=== PATIENT | female | born 1985 | race Caucasian/White ===

== ENCOUNTER 2017-10-27 11:11 | Emergency (ER) | payer MEDICARE, OTHER ==
[2017-10-27 11:23] VITALS: BP 113/78; PULSE 102; RESP 18; TEMP 97; O2SAT 100
--- NOTE | 2017-10-27 11:30 | PD ---
HPI Chief Complaint: Suicide Ideation/Attempt Time Seen by Provider: 11:28 Travel History International Travel<30 days: No Contact w/Intl Traveler<30days: No Traveled to known affect area: No History of Present Illness HPI 31-year-old female with PMH of bipolar, schizophrenia presents to the ED under Rangel act for psychiatric evaluation. According to the Rangel act the patient flagged down a passerby and asked to use the phone. She used the phone to call EMS report that she is suicidal. On presentation she confirms that she is indeed suicidal. She has no specific plan. She states that she receives some sort of shot for her psychiatric illnesses but is unsure of the name of the medication, last dose a few weeks ago. She denies any somatic complaints. She is unsure the date of her last period. She endorses unprotected sex with male partner since then. She states that she lives in [place], but has [place]." She endorses using ice and heroin this week. She endorses smoking cigarettes, denies alcohol use. She states her tetanus immunization is up-to- date. PFSH Past Medical History ?: Unknown Social History Tobacco Use: Yes Allergies-Medications (Allergen,Severity, Reaction): Coded Allergies: No Known Allergies (Unverified , 10/27/17) Reported Meds & Prescriptions Reported Meds & Active Scripts Active Bactrim DS (Sulfamethoxazole-Trimethoprim) 800-160 Mg Tab 1 Tab PO BID Review of Systems Except as stated in HPI: all other systems reviewed are Neg Physical Exam Narrative GENERAL: Well-nourished, well-developed white female no acute distress. PSYCH: Calm, cooperative. Does not seem to be responding to internal stimuli. SKIN: Focused skin assessment warm/dry. Multiple superficial scratches and lacerations of the upper and lower extremities bilaterally. No signs of infection. HEAD: Normocephalic. EYES: No scleral icterus. No injection or drainage. NECK: Supple, trachea midline. No JVD or lymphadenopathy. CARDIOVASCULAR: Regular rate and rhythm without murmurs, gallops, or rubs. RESPIRATORY: Breath sounds equal bilaterally. No accessory muscle use. GASTROINTESTINAL: Abdomen soft, non-tender, nondistended. MUSCULOSKELETAL: No cyanosis, or edema. Walks with a normal gait. BACK: Nontender without obvious deformity. No CVA tenderness. Data Data Last Documented VS Vital Signs Date Time Temp Pulse Resp B/P (MAP) Pulse Ox O2 Delivery O2 Flow Rate FiO2 10/27/17 11:23 97.0 102 18 113/78 (90) 100 Orders Orders Complete Blood Count With Diff (10/27/17 11:21) Comprehensive Metabolic Panel (10/27/17 11:21) Thyroid Stimulating Hormone (10/27/17 11:21) Urinalysis - C+S If Indicated (10/27/17 11:21) Psych Screen (10/27/17 11:21) Drug Screen, Random Urine (10/27/17 11:21) Alcohol (Ethanol) (10/27/17 11:21) Ed Urine Pregnancytest Poc (10/27/17 11:21) Diet Regular Basic (10/27/17 Lunch) Urine Culture (10/27/17 13:58) Sulfamet-Trimeth Ds 800-160 Mg (Bactrim (10/27/17 15:30) Labs Laboratory Tests Test 10/27/17 11:32 10/27/17 13:58 White Blood Count 5.1 TH/MM3 Red Blood Count 4.12 MIL/MM3 Hemoglobin 13.3 GM/DL Hematocrit 38.6 % Mean Corpuscular Volume 93.7 FL Mean Corpuscular Hemoglobin 32.4 PG Mean Corpuscular Hemoglobin Concent 34.5 % Red Cell Distribution Width 13.5 % Platelet Count 157 TH/MM3 Mean Platelet Volume 7.5 FL Neutrophils (%) (Auto) 53.1 % Lymphocytes (%) (Auto) 34.1 % Monocytes (%) (Auto) 11.9 % Eosinophils (%) (Auto) 0.1 % Basophils (%) (Auto) 0.8 % Neutrophils # (Auto) 2.7 TH/MM3 Lymphocytes # (Auto) 1.7 TH/MM3 Monocytes # (Auto) 0.6 TH/MM3 Eosinophils # (Auto) 0.0 TH/MM3 Basophils # (Auto) 0.0 TH/MM3 CBC Comment DIFF FINAL Differential Comment Blood Urea Nitrogen 13 MG/DL Creatinine 0.99 MG/DL Random Glucose 103 MG/DL Total Protein 8.2 GM/DL Albumin 4.1 GM/DL Calcium Level 8.9 MG/DL Alkaline Phosphatase 86 U/L Aspartate Amino Transf (AST/SGOT) 70 U/L Alanine Aminotransferase (ALT/SGPT) 151 U/L Total Bilirubin 0.7 MG/DL Sodium Level 137 MEQ/L Potassium Level 3.8 MEQ/L Chloride Level 104 MEQ/L Carbon Dioxide Level 24.1 MEQ/L Anion Gap 9 MEQ/L Estimat Glomerular Filtration Rate 65 ML/MIN Thyroid Stimulating Hormone 3rd Gen 7.240 uIU/ML Ethyl Alcohol Level LESS THAN 3 MG/DL Urine Color YELLOW Urine Turbidity HAZY Urine pH 6.0 Urine Specific [place] 1.015 Urine Protein TRACE mg/dL Urine Glucose (UA) NEG mg/dL Urine Ketones NEG mg/dL Urine Occult Blood SMALL Urine Nitrite NEG Urine Bilirubin NEG Urine Urobilinogen LESS THAN 2.0 MG/DL Urine Leukocyte Esterase LARGE Urine RBC 17 /hpf Urine WBC 45 /hpf Urine WBC Clumps RARE Urine Squamous Epithelial Cells 8 /hpf Urine Transitional Epithelial Cells <1 /hpf Urine Bacteria OCC /hpf Urine Mucus FEW /lpf Microscopic Urinalysis Comment CULTURE INDICATED Urine Opiates Screen POS Urine Barbiturates Screen NEG Urine Amphetamines Screen POS Urine Benzodiazepines Screen POS Urine Cocaine Screen POS Urine Cannabinoids Screen NEG MDM Medical Decision Making Medical Screen Exam Complete: Yes Emergency Medical Condition: Yes Differential Diagnosis Adjustment disorder versus anxiety versus bipolar versus depression versus dementia versus electrolyte disorder versus malingering versus mood disorder versus ODD versus psychosis versus PTSD versus schizophrenia versus schizoaffective disorder versus substance-induced mood disorder versus other Narrative Course 31-year-old female with PMH of bipolar, schizophrenia presents to the ED under Rangel act for psychiatric evaluation. Patient endorses suicidality without specific plan. She states that she receives some sort of shot for her psychiatric illnesses but is unsure of the name of the medication, last dose a few weeks ago. She denies any somatic complaints. She is unsure the date of her last period. Endorses using ice and heroin this week. Vitals reviewed. On exam the patient is calm and cooperative, does not appear to be responding to internal stimuli. Multiple superficial abrasions noted. States tetanus is up-to-date. Chest CTAB. Abdomen soft and nontender. Patient walks with normal gait. No concerning abnormalities a CBC. Mild elevation 2-1 of the ALT to AST. TSH elevated, likely related to recent heroin and ice use. UA hazy, small occult blood, large leukocyte Estrace, 45 WBCs, rare WBC clumps, occasional bacteria. Culture pending. Tox screen positive for opiates and amphetamines benzodiazepines cocaine. Patient's prescribed Bactrim DS twice daily 3 days. Bactrim is ordered every 12 hours while in the hospital. She is medically cleared for psychiatric evaluation. Diagnosis Primary Impression: Urinary tract infection Qualified Codes: N39.0 - Urinary tract infection, site not specified Additional Impression: Substance abuse Scripts Sulfamethoxazole-Trimethoprim (Bactrim DS) 800-160 Mg Tab 1 TAB PO BID for Infection, #6 TAB 0 Refills Prov: Neri Villalta MD 10/27/17 Kimberley Mon Oct 27, 2017 11:30
[2017-10-27 11:40] LABS: AUTOMATED NEUTROPHIL # 2.7 TH/MM3 (1.8-7.7); BASOPHIL % 0.8 % (0.0-2.0); EOSINOPHIL % 0.1 % (0.0-4.0); HEMATOCRIT 38.6 % (35.0-46.0); HEMOGLOBIN 13.3 GM/DL (11.6-15.3); LYMPH % 34.1 % (9.0-44.0); LYMPHOCYTE # 1.7 TH/MM3 (1.0-4.8); MEAN CELL VOLUME 93.7 FL (80.0-100.0); MEAN CORPUSCULAR HEMOGLOBIN 32.4 PG (27.0-34.0); MEAN CORPUSCULAR HGB CONC 34.5 % (32.0-36.0); MEAN PLATELET VOLUME 7.5 FL (7.0-11.0); MONO % 11.9 % (0.0-8.0); MONOCYTE # 0.6 TH/MM3 (0-0.9); NEUT % 53.1 % (16.0-70.0); PLATELET COUNT 157 TH/MM3 (150-450); RED BLOOD COUNT 4.12 MIL/MM3 (4.00-5.30); RED CELL DISTRIBUTION WIDTH 13.5 % (11.6-17.2); WHITE BLOOD COUNT 5.1 TH/MM3 (4.0-11.0)
[2017-10-27 11:54] LABS: ALBUMIN 4.1 GM/DL (3.4-5.0); AST (GOT) 70 U/L (15-37); BICARBONATE 24.1 MEQ/L (21.0-32.0); BLOOD UREA NITROGEN 13 MG/DL (7-18); CALCIUM 8.9 MG/DL (8.5-10.1); CHLORIDE 104 MEQ/L (98-107); CREATININE 0.99 MG/DL (0.50-1.00); GLOMERULAR FILTRATION RATE 65 ML/MIN (>89); GLUCOSE,RANDOM 103 MG/DL (74-106); SODIUM (NA) 137 MEQ/L (136-145)
[2017-10-27 11:55] LABS: ALT (GPT) 151 U/L (10-53)
[2017-10-27 12:05] LABS: ALKALINE PHOSPHATASE 86 U/L (45-117); TOTAL BILIRUBIN ADULT 0.7 MG/DL (0.2-1.0); TOTAL PROTEIN 8.2 GM/DL (6.4-8.2)
[2017-10-27 14:20] LABS: BACTERIA, URINE OCC /hpf; BILIRUBIN, URINE NEG (NEG); BLOOD, URINE SMALL (NEG); GLUCOSE,URINE NEG (NEG); KETONE, URINE NEG (NEG); MUCUS URINE FEW /lpf (OCC); NITRITE,URINE NEG (NEG); SQUAMOUS EPITHELIAL CELL URINE 8 /hpf (0-5); TRANSITIONAL EPI CELLS, URINE <1 /hpf; URINE COLOR YELLOW (YELLW/STRAW); URINE LEUKOCYTE ESTERASE LARGE (NEG); WHITE BLOOD CELL CLUMPS RARE
--- NOTE | 2017-10-27 14:55 | PD.PSY.CON ---
Provisional Diagnosis Admission Date [facility] I. Polysubstance dependence including cocaine, cannabis, amphetamines, benzodiazepine, opiates History of Present Illness Service Psychiatry Consult Requested By ER Reason for Consult SI Primary Care Physician No Primary Care Physician HPI The patient is 31-year-old female with PMH of bipolar, schizophrenia, polysubstance dependence including cocaine, cannabis, benzodiazepines, opiates, who presents to the ED under Rangel act for psychiatric evaluation. According to the Rangel act the patient flagged down a passerby and asked to use the phone. She used the phone to call EMS report that she is suicidal. On presentation she confirms that she is indeed suicidal. She has no specific plan. She states that she receives some sort of shot for her psychiatric illnesses but is unsure of the name of the medication, last dose a few weeks ago. She denies any somatic complaints. She is unsure the date of her last period. She endorses unprotected sex with male partner since then. She states that she lives in [place], but has [place]." She endorses using ice and heroin this week. She endorses smoking cigarettes, denies alcohol use. On psychiatric evaluation today the patient denies depression, she says that she needs to go to detox, denies suicidal and was ideation, denies visual and auditory hallucinations. Patient is fully oriented 3, logical, coherent and relevant. She is in agreement with the discharge and then transferred to [facility]. Review of Systems Constitutional: DENIES: Diaphoretic episodes, Fatigue, Fever, Weight gain, Weight loss, Chills, Dizziness, Change in appetite, Night Sweats Eyes: DENIES: Blurred vision, Diplopia, Eye inflammation, Eye pain, Vision loss , Photosensitivity, Double Vision Ears, nose, mouth, throat: DENIES: Tinnitus, Hearing loss, Vertigo, Nasal discharge, Oral lesions, Throat pain, Hoarseness, Ear Pain, Running Nose, Epistaxis, Sinus Pain, Toothache, Odynophagia Respiratory: DENIES: Apneas, Cough, Snoring, Wheezing, Hemoptysis, Sputum production, Shortness of breath Cardiovascular: DENIES: Chest pain, Palpitations, Syncope, Dyspnea on Exertion , PND, Lower Extremity Edema, Orthopnea, Claudication Gastrointestinal: DENIES: Abdominal pain, Black stools, Bloody stools, Constipation, Diarrhea, Nausea, Vomiting, Difficulty Swallowing, Anorexia Genitourinary: DENIES: Abnormal vaginal bleeding, Dysmenorrhea, Dyspareunia, Sexual dysfunction, Urinary frequency, Urinary incontinence, Urgency, Hematuria , Dysuria, Nocturia, Vaginal discharge Musculoskeletal: DENIES: Joint pain, Muscle aches, Stiffness, Joint Swelling, Back pain, Neck pain Integumentary: DENIES: Abnormal pigmentation, Pruritus, Rash, Nail changes, Breast masses, Breast skin changes, Nipple discharge Immunologic/allergic: DENIES: Eczema, Urticaria Psychiatric: DENIES: Anxiety, Confusion, Mood changes, Depression, Hallucinations, Agitation, Suicidal Ideation, Homicidal Ideation, Delusions Past Family Social History Coded Allergies: No Known Allergies (Unverified , 10/27/17) Discontinued Scripts Sulfamethoxazole-Trimethoprim (Bactrim DS) 800-160 Mg Tab, 1 TAB PO BID for Infection, #6 TAB 0 Refills Prov:Neri Villalta MD 10/27/17 Physical Exam Vital Signs Vital Signs Date Time Temp Pulse Resp B/P (MAP) Pulse Ox O2 Delivery O2 Flow Rate FiO2 10/27/17 11:23 97.0 102 18 113/78 (90) 100 Lab Results Test 10/27/17 11:32 10/27/17 13:58 White Blood Count 5.1 TH/MM3 Red Blood Count 4.12 MIL/MM3 Hemoglobin 13.3 GM/DL Hematocrit 38.6 % Mean Corpuscular Volume 93.7 FL Mean Corpuscular Hemoglobin 32.4 PG Mean Corpuscular Hemoglobin Concent 34.5 % Red Cell Distribution Width 13.5 % Platelet Count 157 TH/MM3 Mean Platelet Volume 7.5 FL Neutrophils (%) (Auto) 53.1 % Lymphocytes (%) (Auto) 34.1 % Monocytes (%) (Auto) 11.9 % Eosinophils (%) (Auto) 0.1 % Basophils (%) (Auto) 0.8 % Neutrophils # (Auto) 2.7 TH/MM3 Lymphocytes # (Auto) 1.7 TH/MM3 Monocytes # (Auto) 0.6 TH/MM3 Eosinophils # (Auto) 0.0 TH/MM3 Basophils # (Auto) 0.0 TH/MM3 CBC Comment DIFF FINAL Differential Comment Blood Urea Nitrogen 13 MG/DL Creatinine 0.99 MG/DL Random Glucose 103 MG/DL Total Protein 8.2 GM/DL Albumin 4.1 GM/DL Calcium Level 8.9 MG/DL Alkaline Phosphatase 86 U/L Aspartate Amino Transf (AST/SGOT) 70 U/L Alanine Aminotransferase (ALT/SGPT) 151 U/L Total Bilirubin 0.7 MG/DL Sodium Level 137 MEQ/L Potassium Level 3.8 MEQ/L Chloride Level 104 MEQ/L Carbon Dioxide Level 24.1 MEQ/L Anion Gap 9 MEQ/L Estimat Glomerular Filtration Rate 65 ML/MIN Thyroid Stimulating Hormone 3rd Gen 7.240 uIU/ML Ethyl Alcohol Level LESS THAN 3 MG/DL Urine Color YELLOW Urine Turbidity HAZY Urine pH 6.0 Urine Specific [place] 1.015 Urine Protein TRACE mg/dL Urine Glucose (UA) NEG mg/dL Urine Ketones NEG mg/dL Urine Occult Blood SMALL Urine Nitrite NEG Urine Bilirubin NEG Urine Urobilinogen LESS THAN 2.0 MG/DL Urine Leukocyte Esterase LARGE Urine RBC 17 /hpf Urine WBC 45 /hpf Urine WBC Clumps RARE Urine Squamous Epithelial Cells 8 /hpf Urine Transitional Epithelial Cells <1 /hpf Urine Bacteria OCC /hpf Urine Mucus FEW /lpf Microscopic Urinalysis Comment CULTURE INDICATED Urine Opiates Screen POS Urine Barbiturates Screen NEG Urine Amphetamines Screen POS Urine Benzodiazepines Screen POS Urine Cocaine Screen POS Urine Cannabinoids Screen NEG Date/Time Source Procedure Growth Status 10/27/17 13:58 Urine Clean Catch Urine Culture Pending Received Mental Status Examination Appearance: Appropriate Consciousness: Alert Orientation: x4 Motor Activity: Normal gait Speech: Unremarkable Language: Adequate Fund of Knowledge: Adequate Attention and Concentration: Adequate Memory: Unremarkable Mood: Appropriate Affect: Appropriate Thought Process & Associations: Intact Thought Content: Appropriate Hallucination Type: None Delusion Type: None Suicidal Ideation: No Suicidal Plan: No Suicidal Intention: No Homicidal Ideation: No Homicidal Plan: No Homicidal Intention: No Insight: Adequate Judgment: Adequate Assessment & Plan Problem List: (1) Polysubstance dependence ICD Codes: F19.20 - Other psychoactive substance dependence, uncomplicated Assessment & Plan: At the moment of this evaluation the patient reports that she is motivated to be transferred to detox. On her arrival the patient endorsed suicidal ideation in the context of cannabis, cocaine, benzodiazepines and opiates intoxication. She reports symptoms of withdrawal at the moment, she wants to go to detox, she denies suicidal and was ideation, she denies visual and auditory hallucinations. Patient will be transferred to [facility]. Assessment & Plan Estimated LOS: Edgar Huynh MD Oct 27, 2017 14:55
[2017-10-27] MEDS ORDERED: BACT800T5 PO (15:26)
[2017-10-27] MEDS ORDERED: SULFAMETHOXAZOLE-TRIMETHOPRIM DS 800-160 MG TAB PO SCH (15:30)
--- NOTE | 2017-10-27 16:04 | PD ---
Physical Exam Time Seen by Provider: 16:[address] Doshi has evaluated the patient, lifted the Rangel act and cleared the patient for discharge. Data Data Last Documented VS Vital Signs Date Time Temp Pulse Resp B/P (MAP) Pulse Ox O2 Delivery O2 Flow Rate FiO2 10/27/17 11:23 97.0 102 18 113/78 (90) 100 Orders Orders Complete Blood Count With Diff (10/27/17 11:21) Comprehensive Metabolic Panel (10/27/17 11:21) Thyroid Stimulating Hormone (10/27/17 11:21) Urinalysis - C+S If Indicated (10/27/17 11:21) Psych Screen (10/27/17 11:21) Drug Screen, Random Urine (10/27/17 11:21) Alcohol (Ethanol) (10/27/17 11:21) Ed Urine Pregnancytest Poc (10/27/17 11:21) Diet Regular Basic (10/27/17 Lunch) Urine Culture (10/27/17 13:58) Sulfamet-Trimeth Ds 800-160 Mg (Bactrim (10/27/17 15:30) Labs Laboratory Tests Test 10/27/17 11:32 10/27/17 13:58 White Blood Count 5.1 TH/MM3 Red Blood Count 4.12 MIL/MM3 Hemoglobin 13.3 GM/DL Hematocrit 38.6 % Mean Corpuscular Volume 93.7 FL Mean Corpuscular Hemoglobin 32.4 PG Mean Corpuscular Hemoglobin Concent 34.5 % Red Cell Distribution Width 13.5 % Platelet Count 157 TH/MM3 Mean Platelet Volume 7.5 FL Neutrophils (%) (Auto) 53.1 % Lymphocytes (%) (Auto) 34.1 % Monocytes (%) (Auto) 11.9 % Eosinophils (%) (Auto) 0.1 % Basophils (%) (Auto) 0.8 % Neutrophils # (Auto) 2.7 TH/MM3 Lymphocytes # (Auto) 1.7 TH/MM3 Monocytes # (Auto) 0.6 TH/MM3 Eosinophils # (Auto) 0.0 TH/MM3 Basophils # (Auto) 0.0 TH/MM3 CBC Comment DIFF FINAL Differential Comment Blood Urea Nitrogen 13 MG/DL Creatinine 0.99 MG/DL Random Glucose 103 MG/DL Total Protein 8.2 GM/DL Albumin 4.1 GM/DL Calcium Level 8.9 MG/DL Alkaline Phosphatase 86 U/L Aspartate Amino Transf (AST/SGOT) 70 U/L Alanine Aminotransferase (ALT/SGPT) 151 U/L Total Bilirubin 0.7 MG/DL Sodium Level 137 MEQ/L Potassium Level 3.8 MEQ/L Chloride Level 104 MEQ/L Carbon Dioxide Level 24.1 MEQ/L Anion Gap 9 MEQ/L Estimat Glomerular Filtration Rate 65 ML/MIN Thyroid Stimulating Hormone 3rd Gen 7.240 uIU/ML Ethyl Alcohol Level LESS THAN 3 MG/DL Urine Color YELLOW Urine Turbidity HAZY Urine pH 6.0 Urine Specific [place] 1.015 Urine Protein TRACE mg/dL Urine Glucose (UA) NEG mg/dL Urine Ketones NEG mg/dL Urine Occult Blood SMALL Urine Nitrite NEG Urine Bilirubin NEG Urine Urobilinogen LESS THAN 2.0 MG/DL Urine Leukocyte Esterase LARGE Urine RBC 17 /hpf Urine WBC 45 /hpf Urine WBC Clumps RARE Urine Squamous Epithelial Cells 8 /hpf Urine Transitional Epithelial Cells <1 /hpf Urine Bacteria OCC /hpf Urine Mucus FEW /lpf Microscopic Urinalysis Comment CULTURE INDICATED Urine Opiates Screen POS Urine Barbiturates Screen NEG Urine Amphetamines Screen POS Urine Benzodiazepines Screen POS Urine Cocaine Screen POS Urine Cannabinoids Screen NEG MDM Supervised Visit with [facility]: No Narrative Course Dr. Doshi has evaluated the patient, lifted the Rangel act and cleared the patient for discharge. Patient contracts safety. Denies suicidal or homicidal ideations. Patient will be provided community resource packet to [facility] for follow-up. Has friends and family for support. Patient was medically cleared by alternate provider prior to psych screening. Patient has been evaluated by psychiatry and and is now cleared for discharge. Diagnosis Primary Impression: Urinary tract infection Qualified Codes: N39.0 - Urinary tract infection, site not specified Additional Impression: Substance abuse Referrals: [facility] (Out patient) [facility] Primary Care Physician Psychiatrist [facility] Patient Instructions: General Instructions, Polysubstance Abuse (ED), Urinary Tract Infection in Women (ED) Additional Instruction: Contract safety to your self and others Follow-up with psychiatry Follow-up with primary care provider Follow-up with [facility] Return to the emergency department immediately with worsening of symptoms Take antibiotics as prescribed and complete full course Drink plenty of fluids Maintain good personal hygiene Follow-up with primary care provider Return to the emergency department immediately with worsening of symptoms Med/Other Pt SpecificInfo: Prescription(s) given Scripts Sulfamethoxazole-Trimethoprim (Bactrim DS) 800-160 Mg Tab 1 TAB PO BID for Infection, #6 TAB 0 Refills Prov: Neri Villalta MD 10/27/17 Disposition: 01 DISCHARGE HOME Condition: Stable Karen Good Oct 27, 2017 16:04
== END 2017-10-27 16:45 | disposition home or self-care (01) ==
LOC: NEPJ 11:11
DX: N39.0 Urinary tract infection, site not specified (principal); F19.20 Other psychoactive substance dependence, uncomplicated; F14.90 Cocaine use, unspecified, uncomplicated; F11.90 Opioid use, unspecified, uncomplicated; F20.9 Schizophrenia, unspecified; F31.9 Bipolar disorder, unspecified; Z72.0 Tobacco use
CPT/HCPCS: 80053; 80307; 81001; 84443; 85025; 87086; 99284

== ENCOUNTER 2017-10-28 23:51 | Inpatient (IN) | payer MEDICARE, OTHER ==
[~2017-10-28] VITALS: Ht 162.6 cm; Wt 68.5 kg
[~2017-10-28 23:51] MED LIST: BACT800T5 PO
[2017-10-29 00:15] VITALS: BP 129/55; PULSE 70; RESP 16; TEMP 97.6; O2SAT 100
[2017-10-29 00:56] LABS: AUTOMATED NEUTROPHIL # 2.5 TH/MM3 (1.8-7.7); BASOPHIL # 0.1 TH/MM3 (0-0.2); EOSINOPHIL % 0.9 % (0.0-4.0); HEMOGLOBIN 13.9 GM/DL (11.6-15.3); LYMPH % 41.8 % (9.0-44.0); LYMPHOCYTE # 2.1 TH/MM3 (1.0-4.8); MEAN CELL VOLUME 93.6 FL (80.0-100.0); MEAN CORPUSCULAR HEMOGLOBIN 32.6 PG (27.0-34.0); MEAN CORPUSCULAR HGB CONC 34.8 % (32.0-36.0); MEAN PLATELET VOLUME 7.9 FL (7.0-11.0); MONO % 7.7 % (0.0-8.0); MONOCYTE # 0.4 TH/MM3 (0-0.9); NEUT % 48.6 % (16.0-70.0); PLATELET COUNT 185 TH/MM3 (150-450); RED BLOOD COUNT 4.28 MIL/MM3 (4.00-5.30); RED CELL DISTRIBUTION WIDTH 14.1 % (11.6-17.2); WHITE BLOOD COUNT 5.1 TH/MM3 (4.0-11.0)
[2017-10-29 01:12] LABS: ALKALINE PHOSPHATASE 93 U/L (45-117); ALT (GPT) 151 U/L (10-53); TOTAL BILIRUBIN ADULT 0.4 MG/DL (0.2-1.0)
[2017-10-29 01:14] LABS: ACETAMINOPHEN LESS THAN 2.0 MCG/ML (10.0-30.0); ALBUMIN 4.3 GM/DL (3.4-5.0); AST (GOT) 81 U/L (15-37); BICARBONATE 29.9 MEQ/L (21.0-32.0); BLOOD UREA NITROGEN 12 MG/DL (7-18); CALCIUM 9.4 MG/DL (8.5-10.1); CHLORIDE 104 MEQ/L (98-107); CREATININE 1.05 MG/DL (0.50-1.00); GLOMERULAR FILTRATION RATE 60 ML/MIN (>89); GLUCOSE,RANDOM 89 MG/DL (74-106); SODIUM (NA) 142 MEQ/L (136-145)
[2017-10-29 03:07] VITALS: BP 94/57; PULSE 76; RESP 16; TEMP 97.7; O2SAT 100
--- NOTE | 2017-10-29 06:15 | PD ---
HPI Chief Complaint: Psychiatric Symptoms Time Seen by Provider: 06:06 Travel History International Travel<30 days: No Contact w/Intl Traveler<30days: No Traveled to known affect area: No History of Present Illness HPI 31-year-old female presents emergency department for evaluation under a Rangel act. Patient has been increasingly depressed. She has been having suicidal thoughts. She does not discuss with me a plan. This has been worsening over the last several days. She states she has also been tired and weak. She feels hopeless like giving up. She has not been recently ill. She has no other symptoms to report at this time. [facility] Past Medical History Bipolar Disorder: Yes Immunizations Current: Yes Schizophrenia: Yes ?: Unknown Past Surgical History Section: Yes (X2) Social History Alcohol Use: Yes (OCCASIONAL) Tobacco Use: Yes Substance Use: Yes (COCAINE) Allergies-Medications (Allergen,Severity, Reaction): Coded Allergies: No Known Allergies (Unverified , 10/27/17) Reported Meds & Prescriptions Reported Meds & Active Scripts Active Active Prescriptions or Reported Medications Unobtainable Review of Systems Except as stated in HPI: all other systems reviewed are Neg Physical Exam Narrative GENERAL: Well-nourished female patient in no acute distress SKIN: Focused skin assessment warm/dry. HEAD: Atraumatic. Normocephalic. EYES: Pupils equal and round. No scleral icterus. No injection or drainage. ENT: No nasal bleeding or discharge. Mucous membranes pink and moist. NECK: Trachea midline. No JVD. CARDIOVASCULAR: Regular rate and rhythm. No murmur appreciated. RESPIRATORY: No accessory muscle use. Clear to auscultation. Breath sounds equal bilaterally. GASTROINTESTINAL: Abdomen soft, non-tender, nondistended. Hepatic and splenic margins not palpable. MUSCULOSKELETAL: No obvious deformities. No clubbing. No cyanosis. No edema. NEUROLOGICAL: Awake and alert. No obvious cranial nerve deficits. Motor grossly within normal limits. Normal speech. PSYCHIATRIC: Flat affect, depressed mood Data Data Last Documented VS Vital Signs Date Time Temp Pulse Resp B/P (MAP) Pulse Ox O2 Delivery O2 Flow Rate FiO2 10/29/17 03:07 97.7 76 16 94/57 (69) 100 Room Air Orders Orders Complete Blood Count With Diff (10/29/17 00:25) Comprehensive Metabolic Panel (10/29/17 00:25) Tylenol (Acetaminophen) (10/29/17 00:25) Salicylates (Aspirin) (10/29/17 00:25) Alcohol (Ethanol) (10/29/17 00:25) Drug Screen, Random Urine (10/29/17 00:25) Psych Screen (10/29/17 00:25) Ed Urine Pregnancytest Poc (10/29/17 00:25) Diet Regular Basic (10/29/17 Breakfast) Labs Laboratory Tests Test 10/29/17 00:20 White Blood Count 5.1 TH/MM3 Red Blood Count 4.28 MIL/MM3 Hemoglobin 13.9 GM/DL Hematocrit 40.0 % Mean Corpuscular Volume 93.6 FL Mean Corpuscular Hemoglobin 32.6 PG Mean Corpuscular Hemoglobin Concent 34.8 % Red Cell Distribution Width 14.1 % Platelet Count 185 TH/MM3 Mean Platelet Volume 7.9 FL Neutrophils (%) (Auto) 48.6 % Lymphocytes (%) (Auto) 41.8 % Monocytes (%) (Auto) 7.7 % Eosinophils (%) (Auto) 0.9 % Basophils (%) (Auto) 1.0 % Neutrophils # (Auto) 2.5 TH/MM3 Lymphocytes # (Auto) 2.1 TH/MM3 Monocytes # (Auto) 0.4 TH/MM3 Eosinophils # (Auto) 0.0 TH/MM3 Basophils # (Auto) 0.1 TH/MM3 CBC Comment DIFF FINAL Differential Comment Blood Urea Nitrogen 12 MG/DL Creatinine 1.05 MG/DL Random Glucose 89 MG/DL Total Protein 9.0 GM/DL Albumin 4.3 GM/DL Calcium Level 9.4 MG/DL Alkaline Phosphatase 93 U/L Aspartate Amino Transf (AST/SGOT) 81 U/L Alanine Aminotransferase (ALT/SGPT) 151 U/L Total Bilirubin 0.4 MG/DL Sodium Level 142 MEQ/L Potassium Level 3.8 MEQ/L Chloride Level 104 MEQ/L Carbon Dioxide Level 29.9 MEQ/L Anion Gap 8 MEQ/L Estimat Glomerular Filtration Rate 60 ML/MIN Salicylates Level LESS THAN 1.7 MG/DL Acetaminophen Level LESS THAN 2.0 MCG/ML Ethyl Alcohol Level LESS THAN 3 MG/DL MDM Medical Decision Making Medical Screen Exam Complete: Yes Emergency Medical Condition: Yes Medical Record Reviewed: Yes Differential Diagnosis Mood disorder versus personality disorder versus adjustment reaction disorder Narrative Course 31-year-old female presents emergency department under Rangel act for psychiatric evaluation. Patient appears without distress. Vital signs are stable. Laboratory Tests Test 10/29/17 00:20 White Blood Count 5.1 TH/MM3 Red Blood Count 4.28 MIL/MM3 Hemoglobin 13.9 GM/DL Hematocrit 40.0 % Mean Corpuscular Volume 93.6 FL Mean Corpuscular Hemoglobin 32.6 PG Mean Corpuscular Hemoglobin Concent 34.8 % Red Cell Distribution Width 14.1 % Platelet Count 185 TH/MM3 Mean Platelet Volume 7.9 FL Neutrophils (%) (Auto) 48.6 % Lymphocytes (%) (Auto) 41.8 % Monocytes (%) (Auto) 7.7 % Eosinophils (%) (Auto) 0.9 % Basophils (%) (Auto) 1.0 % Neutrophils # (Auto) 2.5 TH/MM3 Lymphocytes # (Auto) 2.1 TH/MM3 Monocytes # (Auto) 0.4 TH/MM3 Eosinophils # (Auto) 0.0 TH/MM3 Basophils # (Auto) 0.1 TH/MM3 CBC Comment DIFF FINAL Differential Comment Blood Urea Nitrogen 12 MG/DL Creatinine 1.05 MG/DL Random Glucose 89 MG/DL Total Protein 9.0 GM/DL Albumin 4.3 GM/DL Calcium Level 9.4 MG/DL Alkaline Phosphatase 93 U/L Aspartate Amino Transf (AST/SGOT) 81 U/L Alanine Aminotransferase (ALT/SGPT) 151 U/L Total Bilirubin 0.4 MG/DL Sodium Level 142 MEQ/L Potassium Level 3.8 MEQ/L Chloride Level 104 MEQ/L Carbon Dioxide Level 29.9 MEQ/L Anion Gap 8 MEQ/L Estimat Glomerular Filtration Rate 60 ML/MIN Salicylates Level LESS THAN 1.7 MG/DL Acetaminophen Level LESS THAN 2.0 MCG/ML Ethyl Alcohol Level LESS THAN 3 MG/DL Lab work is reviewed and without acute concern. Patient is medically cleared to undergo psychiatric screening for further evaluation and disposition. Diagnosis Primary Impression: Adjustment reaction Qualified Codes: F43.21 - Adjustment disorder with depressed mood Scripts Unable to Obtain Active Prescriptions or Reported Meds Condition: Stable Erin Corrigan GENI Oct 29, 2017 06:15
[2017-10-29 10:00] VITALS: BP 97/57; PULSE 67; RESP 16; TEMP 98.1; O2SAT 99
[2017-10-29 14:54] VITALS: BP 106/56; PULSE 78; RESP 16; TEMP 97.6; O2SAT 98
[2017-10-29 18:00] VITALS: BP 105/59; PULSE 64; RESP 16; TEMP 98.2; O2SAT 100
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
[2017-10-29] MEDS ORDERED: ALUMINUM/MAGNESIUM/SIMETH 30 ML CUP PO PRN (20:00)
[2017-10-29] MEDS ORDERED: ACETAMINOPHEN 325 MG TAB PO PRN (20:00)
[2017-10-29] MEDS ORDERED: MAGNESIUM HYDROXIDE SUSP 30 ML CUP PO PRN (20:00)
[2017-10-29 21:45] VITALS: BP 89/61; PULSE 80; RESP 18; TEMP 97.3; O2SAT 99
[2017-10-29] MEDS: SULFAMETHOXAZOLE-TRIMETHOPRIM DS 800-160 MG TAB PO SCH (22:52)
[2017-10-30 06:00] VITALS: BP 98/57; PULSE 70; RESP 18; TEMP 97.2; O2SAT 100
[2017-10-30] MEDS: SULFAMETHOXAZOLE-TRIMETHOPRIM DS 800-160 MG TAB PO SCH ×3 (08:27→20:53)
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
--- NOTE | 2017-10-30 14:34 | PD.CONS ---
[facility]ry team Reason for Consult Urinary tract infection Primary Care Physician No Primary Care Physician Diagnoses: History of Present Illness Patient is a 31 year old female with history of bipolar disorder, schizophrenia , TBI who came into the hospital under Rangel act for suicidal ideation. She is now admitted to inpatient psychiatry unit for further evaluation. Consulted for assistance with medical management urinary tract infection. Patient seen and examined today. Reports she is doing okay but she thinks that she has bilateral lower extremity swelling. Patient jumping from one topic to the other. Otherwise, denies pain and discomfort. Denies SOB/ dyspnea. Denies chest pain, palpitations, headaches, dizziness. Denies fevers, chills, n/v/d. Denies dysuria. Review of Systems Except as stated in HPI: all other systems reviewed are Neg Past Family Social History Allergies: Coded Allergies: No Known Allergies (Unverified , 10/27/17) Past Medical History Bipolar disorder Schizophrenia Substance abuse disorder Traumatic brain injury Past Surgical History 2 Shoulder surgeries Reported Medications Reported Meds & Active Scripts Active Active Prescriptions or Reported Medications Unobtainable Active Ordered Medications Current Medications Medications (Trade) Dose Ordered Sig/Hiro Route Start Time Stop Time Status Last Admin (Tylenol) 650 mg Q4H PRN PO 10/29/17 20:00 (Milk Of Magnesia Liq) 30 ml DAILY PRN PO 10/29/17 20:00 (Mag-Al Plus Susp Liq) 30 ml Q6H PRN PO 10/29/17 20:00 (Bactrim Ds 800-160 Mg) 1 tab BID PO 10/29/17 21:00 11/01/17 09:01 10/30/17 09:00 Family History Mother has cancer Social History Lives with mother Occasional alcohol use Currently smoking, half a pack to 1 pack per day Cocaine and heroin use Physical Exam Vital Signs Vital Signs Date Time Temp Pulse Resp B/P (MAP) Pulse Ox O2 Delivery O2 Flow Rate FiO2 10/30/17 06:00 97.2 70 18 98/57 (71) 100 10/29/17 21:45 97.3 80 18 89/61 (70) 99 10/29/17 18:00 98.2 64 16 105/59 (74) 100 Room Air 10/29/17 14:54 97.6 78 16 106/56 (73) 98 Room Air Physical Exam GENERAL: This is a thin, well-developed patient, in no apparent distress. SKIN: Cool and dry. Bilateral lower extremity multiple bug bite appearance, scratched, dry skin HEAD: Normocephalic. EYES: Pupils equal round and reactive. Extraocular motions intact. No scleral icterus. No injection or drainage. ENT: Nose without bleeding. Throat without erythema. Uvula midline. Airway patent. NECK: Trachea midline. CARDIOVASCULAR: Regular rate and rhythm without murmurs, gallops, or rubs. RESPIRATORY: Clear to auscultation. Breath sounds equal bilaterally. No wheezes , rales, or rhonchi. GASTROINTESTINAL: Abdomen soft, non-tender, nondistended. Bowel sounds active 4. MUSCULOSKELETAL: Extremities without clubbing, cyanosis. No edema. NEUROLOGICAL: Awake and alert. Cranial nerves II through XII intact. Motor and sensory grossly within normal limits. Normal speech. Laboratory Laboratory Tests Test 10/29/17 15:47 Urine Opiates Screen NEG Urine Barbiturates Screen NEG Urine Amphetamines Screen POS Urine Benzodiazepines Screen NEG Urine Cocaine Screen POS Urine Cannabinoids Screen NEG Result Diagram: 10/29/17 0020 10/29/17 0020 Assessment and Plan Assessment and Plan Patient is a 31 year old female with history of bipolar disorder, schizophrenia , TBI who came into the hospital under Rangel act for suicidal ideation. She is now admitted to inpatient psychiatry unit for further evaluation. Consulted for assistance with medical management urinary tract infection. Bipolar disorder Schizophrenia -Managed by psychiatry team Polysubstance abuse -Counseled. However patient appears to be thought blocking as she would jump from one topic to the other. Unable to assess understanding. -Avoid beta-noel as patient has cocaine and heroin use Urinary tract infection -UA abnormal -Culture showed 5000 2000 mixed gram positives mason probable contaminants -Patient was started on Bactrim to complete dose 3 days. Continue to complete Xerosis -Apply lotion as needed DVT prop ambulatory Thank you for this consultation. Stable from Hospitalist standpoint. We will sign off. Reconsult as needed. Code Status Full code Discussed Condition With Patient, nursing Marcelle Rouse Oct 30, 2017 2:34 pm
[2017-10-30 17:16] VITALS: BP 91/55; PULSE 80; RESP 18; TEMP 98; O2SAT 99
[2017-10-31 05:57] VITALS: BP 97/56; PULSE 75; RESP 17; TEMP 97.6; O2SAT 91
[2017-10-31] MEDS: SULFAMETHOXAZOLE-TRIMETHOPRIM DS 800-160 MG TAB PO SCH ×2 (08:56→20:48)
[2017-10-31 09:13] LABS: ALBUMIN 3.6 GM/DL (3.4-5.0); ALKALINE PHOSPHATASE 76 U/L (45-117); ALT (GPT) 129 U/L (10-53); AST (GOT) 77 U/L (15-37); BICARBONATE 27.9 MEQ/L (21.0-32.0); BLOOD UREA NITROGEN 10 MG/DL (7-18); CALCIUM 9.1 MG/DL (8.5-10.1); CHLORIDE 105 MEQ/L (98-107); CREATININE 1.11 MG/DL (0.50-1.00); GLOMERULAR FILTRATION RATE 57 ML/MIN (>89); GLUCOSE,RANDOM 106 MG/DL (74-106); SODIUM (NA) 140 MEQ/L (136-145); TOTAL BILIRUBIN ADULT 0.3 MG/DL (0.2-1.0); TOTAL PROTEIN 7.6 GM/DL (6.4-8.2)
--- NOTE | 2017-10-31 10:17 | HHI.PYPN ---
Subjective Chief Complaint: "I didn't feel safe because I was on the streets." Remarks Patient seen and examined with nurse. Chart reviewed. Records received from the [facility], and I have reviewed these. Case discussed with nursing staff. No behavioral issues noted overnight. Case discussed in treatment team. On my examination today, the patient says "I think I am doing okay. I do not have mood swings." She does admit to some vague auditory hallucinations but notes "they do not bother me. I do not do what they say." She does not report any command auditory hallucinations to hurt self/others. She denies any suicidal or homicidal ideation. No physical complaints. Review of Systems ROS Limitations: Poor Historian Except as stated in HPI: all other systems reviewed are Neg Mental Status Examination Appearance: Appropriate Consciousness: Alert Orientation: Person, Place, Date/Time (Approximate) Motor Activity: Normal gait Speech: Unremarkable Language: Adequate Fund of Knowledge: Adequate Attention and Concentration: Adequate Memory: Unremarkable (Remains grossly intact on clinical exam) Mood: Appropriate Affect: Appropriate Thought Process & Associations: Intact, Logical, Linear Thought Content: Appropriate Hallucination Type: None Delusion Type: None Suicidal Ideation: No Suicidal Plan: No Suicidal Intention: No Homicidal Ideation: No Homicidal Plan: No Homicidal Intention: No Mental Status Exam Remarks Insight and judgment seem fair to poor, perhaps chronic condition Results Labs Test 10/31/17 08:08 Blood Urea Nitrogen 10 MG/DL Creatinine 1.11 MG/DL Random Glucose 106 MG/DL Total Protein 7.6 GM/DL Albumin 3.6 GM/DL Calcium Level 9.1 MG/DL Alkaline Phosphatase 76 U/L Aspartate Amino Transf (AST/SGOT) 77 U/L Alanine Aminotransferase (ALT/SGPT) 129 U/L Total Bilirubin 0.3 MG/DL Sodium Level 140 MEQ/L Potassium Level 3.9 MEQ/L Chloride Level 105 MEQ/L Carbon Dioxide Level 27.9 MEQ/L Anion Gap 7 MEQ/L Estimat Glomerular Filtration Rate 57 ML/MIN Thyroid Stimulating Hormone 3rd Gen 0.390 uIU/ML Labs reviewed. GFR is stable. Transaminitis slowly improving. 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 Neuropsychological assessment noted and input appreciated. Awaiting occupational therapy evaluation. Continue to monitor on the inpatient unit. Continue other medications and care as ordered. Patient may sign voluntary. Justification for Cont. Inpt. Monitoring for impairment in self-care Discharge Planning Possible discharge after the weekend Request HC Surrog/Guard Advoc?: No Reddy Storey MD Oct 31, 2017 10:17
--- NOTE | 2017-10-31 12:59 | PD.HHIRCNE ---
Disclaimer Patient was given an explanation of the nature and purpose of the evaluation. Patient agreed to proceed with the evaluation and treatment plan. History Reason for Referral The patient is a 31 year old right-handed female. She has a reported history of bipolar disorder/schizophrenia who presents under a [place]angel act by law enforcement alleging that the patient said that she did not "feel right" and might kill herself. On examination by psychiatry on admission, the patient relates that prior to admission she was hearing voices "asking me to do things I didn't want to do. Telling me what to eat." She denies any such hallucinations now. She denies any visual hallucinations or formication or other hallucinatory material. She tells me "I think the meth has a lot to do with the voices." Patient's urine toxicology is positive for cocaine and methamphetamines. Mood is "all right" and I can elicit no depressive or hypomanic/manic symptoms. Sleep and appetite are reportedly fair. She denies any suicidal or homicidal ideation at this time. I can elicit no paranoia, no ideas of reference, no other delusional material at this time. The remainder of the psychiatric ROS is negative. Patient has no acute physical complaints. She is requesting discharge from the inpatient unit. In terms of past psychiatric history, the patient reports a history of bipolar disorder/ schizophrenia. She is not currently under the care of a psychiatrist. She reports that she was psychiatrically admitted at the [facility] 2 weeks ago and was started at that time on Invega Sustenna. She denies a history of suicide attempts. She denies any history of violent behavior except she does report a history of domestic battery charges. The patient reports that she has been using crack cocaine and methamphetamine. Occasional alcohol. Occasional pain pills. Denies any other substance use. She reported that she is originally from [place], living here in [place] for many years. She has a ninth grade education, no reason given for why she left school at such an early age. She has a sporadic work history. She has multiple arrests in the past for grand theft, failure to appear, assault, etc. She is referred for baseline neuropsychological evaluation to assess cognitive, behavioral and emotional aspects of the injury. Additional Psychosocial Hx Smoking Status: Unknown If Ever Smoked Tobacco Use In Past 12 Months: Cigarettes Hx Caffeine Use: No Hx Substance Use: Yes Level of Education: Middle School Employment Status: Unemployed Prior Living Setting: Home Dominant Hand: Right Past Surgical/Medical History Past Surgery: Yes (C SECT X 2) Major surgery in last 100 days: Unknown Hx Anesthesia Reactions: No Hx Orthopedic Surgery: No Hx Cardiac Surgery: No Hx Chest Surgery: No Hx Abdominal Surgery: No Hx Genitourinary Surgery: No Hx Gynecologic Surgery: Yes (C SECT X 2 ) Hx Endocrine Surgery: No Hx Eye Surgery: No Hx Ear Surgery: No Hx Oral Surgery: No History of Transplant: No Hx of Neuro Prob: No Hx Seizures: No (Patient denies) Hx of Musculoskeletal Pro: No Hx of Cardiovascular Prob: Yes (In the past(SVT) surgical resolution) Hx of Respiratory Problem: No Hx of GI Problems: No Hx of Problems: No ?: Unknown Hx Last Menstrual Period: UNKNOWN Hx Autoimmune Disease: No Hx of Endocrine Problems: No Hx Diabetes: No (Patient denies) Hx of Eye Probl: No Hx of Hearing or Ear Problems: No (Patient denies) Hx Dental Problems: No Hx Psychiatric Problems: Yes Hx Anxiety: Yes Hx Depression: Yes Hx Blood Dyscrasias: No Hx of Body/Medical Devices: No Blood Transfusion History Will receive Blood /Blood prod: Yes Hx Blood Transfusions: No Mental Status Assessment Orientation: oriented to Self, oriented to Place, oriented to Time, oriented to Situation Mental Status: WFL: Thought processing, Language/Interactions, Attention, Learning/Memory, Problem-Solving Adjustment/Coping Assessment Adjustment/Coping: None: Anxiety, Mild: Awareness, Insight, Moderate: Depression, Apathy Observation In terms of emotional functioning, the patient demonstrated questionable challenges. This patient demonstrated no signs of agitation, impulsivity or disinhibition, nor was there remarkable evidence of a formal thought disorder or psychosis. There was no evidence of depression or anxiety, although she endorsed many symptoms of depression. The Geriatric Depression Scale-Short Form was administered given the ease to which it is administered to persons with known neurological pathology, and the patient endorsed 9 of 15 symptoms, which falls within the depressed range, although much of her endorsements tended toward exaggeration. Thought content was free from suicidal, homicidal or paranoid ideation, and thought processes were logical and goal-directed. The patients mood was apathetic and her affect was flat. The patient appears to possess insight and awareness into their situation and within the limits of this brief evaluation, adequate basic judgment. LTG Status: Deferred STG Status: Deferred Team Members: Physician, Neuropsychologist Effort Assessment Effort: Minimal Cognition Assessment Rating: WFL: Attention/Processing, Language, Immediate & Delayed Memor, Visual Perception, Spatial Judgement, Executive, Variable: Awareness-Insight Adjustm Observation The patient was alert and oriented to person, place, time and circumstances surrounding the recent hospitalization. The Mini-Mental State Exam was administered, and the patient obtained a score of 25 out of 30 points, which falls in the normal range. In terms of attention skills, the patient exhibited normal abilities. The patient was able to remain on task and remember basic and complex verbal instructions. In terms of memory functioning, the patient exhibited normal abilities. The patients initial registration of verbal information was normal, and the patient was able to improve their memory with repetition. After a period of delay, the patient was able to recall this information from memory. More specifically, on the Luria Memory Words Test- Short Form, the patients trial one performance was 6 of 7 words, trial five performance was 7 of 7 words, the patients Total Learning score was 32 (above cut-off), and the patients Delayed recall score was 5 of 7 words (above cut-off ). In terms of speech and language skills, the patient demonstrated normal abilities. The patients initiated spontaneous conversation throughout the assessment. Speech was characterized by adequate prosody, grammar, articulation , volume and rate. No remarkable dysnomic or paraphasic errors were noted either during conversational speech or on confrontation naming tasks. Reading recognition skills were adequate, as were writing skills. Her reading recognition ability fell at the low end of the low average range with a standard score of 80 (percentile rank of 9). The patients comprehension for basic one- and two-stage commands was adequate, attenuated by limited effort. In terms of problem-solving skills, the patient exhibited marginally normal abilities. The patients ability to understand abstraction reasoning was marginally normal, as reflected in her ability to abstract essential shared characteristics of objects and concepts. Mathematical reasoning skills were unable to be assessed because she would not participate. Speed of information processing, as evaluated by both the Letter and Category Fluency Tests was marginally normal]. Finally, there was no evidence of ideomotor apraxia or constructional difficulties during this brief evaluation. Summary/Diagnosis Summary This 31 year old woman admitted under [facility] for concerns of self-harm is referred for neuropsychological testing to assess for neurocognitive deficits that may preclude her ability to participate in her self cares. Evaluation results indicate relatively normal functioning, consistent with her estimated low average/Borderline Intellectual Functioning. 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 While she may have issues at present with polysubstance dependence and schizoprhenia, underlying these issues are low intelligence and personality disorder. Impressions Borderline Intellectual Functioning, Antisocial Personality Disorder. Diagnosis: (1) Borderline intellectual functioning (2) Antisocial personality disorder Recommendations Recommendations Recommendations This patient demonstrates the requisite neurocognitive skills to make decisions of a legal, financial and medical nature, although her underlying characterological maladjustment fueled by substance abuse/dependence will likely result in her making extremely poor choices. However, there does not appear to be an underlying neuropsychological cause for her poor decision making proclivities. From a neuropsychological perspective, she appears able to care for herself in a fashion that is likely not much different than she is accustomed. Jerrod Betancourt PhD Oct 31, 2017 12:59
--- NOTE | 2017-10-31 13:37 | EKG ---
Date Performed: 10/30/2017 Time Performed: 13:09:52 PTAGE: 31 years EKG: JUNCTIONAL RHYTHM WITH OCCASIONAL SUPRAVENTRICULAR PREMATURE COMPLEXES ABNORMAL RHYTHM ECG NO PREVIOUS TRACING DOCTOR: Reddy Schneider Interpretating Date/Time 10/31/2017 13:35:32
--- NOTE | 2017-10-31 14:30 | PD.TTN ---
Patient Problems 1. Discharge planning 2. Medication compliance 3. Knowledge deficit 4. Lack of coping skills Progress Toward Goals Provider Present: Dr. Negra Maki Provider Input: Dr. Storey's met to discuss patient's medication, treatment plan, and discharge. Patient is new will evaluate medication Nurse(s) Input: Patient's nurse patient is seclusive to room, refuses to give information Psychiatric Counselors Present: Alma Delia Kuhn, [facility] Psych Therapist Input: Patient is new will evaluate and treat Group Spec/RT/OT/KWONG Present: Joseph Victoria OT Group Spec/RT/OT/KWONG Input: Patient often isolates to self, will be come tearful in group. Alma Delia Kuhn [facility] Oct 31, 2017 14:30
[2017-11-01 06:03] VITALS: BP 94/56; PULSE 60; RESP 17; TEMP 97.8; O2SAT 97
[2017-11-01] MEDS: SULFAMETHOXAZOLE-TRIMETHOPRIM DS 800-160 MG TAB PO SCH (09:08)
--- NOTE | 2017-11-01 11:35 | HHI.PYPN ---
Subjective Chief Complaint: "I didn't feel safe because I was on the streets." Remarks Chart reviewed. Discussed patient with nurse. Chiara, RN and I met with patient. Patient states that she is hearing voices and describes them as "muffled." She is guarded and will not elaborate when asked a question. States " I don't want to take any medications, I don't need them." Finished her last dose of Bactrim for treatment of a UTI. Patient is sexually preoccupied. Nursing staff moved patient from 2707 to 2704 ( short hallway) because she was going into the rooms of the male patients and making statements with sexual undertones. Sleeping and eating well. Did express that she is feeling tired. Mental Status Examination Appearance: Appropriate Consciousness: Alert Orientation: Person, Place, Date/Time (Approximate) Motor Activity: Normal gait Speech: Unremarkable Language: Adequate Fund of Knowledge: Adequate Attention and Concentration: Adequate Memory: Unremarkable (Remains grossly intact on clinical exam) Mood: Appropriate Affect: Appropriate Thought Process & Associations: Intact, Linear Thought Content: Appropriate Hallucination Type: Auditory (hearing voices described as "muffled" ) Delusion Type: None Suicidal Ideation: No Suicidal Plan: No Suicidal Intention: No Homicidal Ideation: No Homicidal Plan: No Homicidal Intention: No Results Vitals/IOs Vital Signs Date Time Temp Pulse Resp B/P (MAP) Pulse Ox O2 Delivery O2 Flow Rate FiO2 11/01/17 06:03 97.8 60 17 94/56 (69) 97 10/29/17 18:00 Room Air Assessment & Plan Problem List: (1) Unspecified psychosis ICD Codes: F29 - Unspecified psychosis not due to a substance or known physiological condition Assessment & Plan: Will continue current treatment plan. Discharge planning in progress. (2) Polysubstance abuse ICD Codes: F19.10 - Other psychoactive substance abuse, uncomplicated (3) Borderline intellectual functioning ICD Codes: R41.83 - Borderline intellectual functioning Assessment & Plan Estimated LOS: days Justification for Cont. Inpt. Moving patient to a lower level of care may lead to decompensation. Request HC Surrog/Guard Advoc?: Hiral Hernandez Nov 01, 2017 11:35
--- NOTE | 2017-11-02 10:02 | HHI.PYPN ---
Subjective Chief Complaint: "I didn't feel safe because I was on the streets." Remarks Reviewed electronic medical records and discussed case with staff. Follow-up was conducted in patient's room with patient lying in bed. She reports that she has been sleeping well and has a good appetite. She states that she hears "constant voices they are spiritual". She denies suicidal or homicidal ideation as well as visual hallucinations. Spoke with her nurse who reported that the patient had denied hearing voices to her just prior to my arrival in the unit. Mental Status Examination Appearance: Appropriate Consciousness: Alert Orientation: Person, Place, Date/Time (Approximate) Motor Activity: Normal gait Speech: Unremarkable Language: Adequate Fund of Knowledge: Adequate Attention and Concentration: Adequate Memory: Unremarkable (Remains grossly intact on clinical exam) Mood: Appropriate Affect: Appropriate Thought Process & Associations: Intact, Linear Thought Content: Appropriate Hallucination Type: Auditory (hearing voices described as "muffled" ) Delusion Type: None Suicidal Ideation: No Suicidal Plan: No Suicidal Intention: No Homicidal Ideation: No Homicidal Plan: No Homicidal Intention: No Results Vitals/IOs Vital Signs Date Time Temp Pulse Resp B/P (MAP) Pulse Ox O2 Delivery O2 Flow Rate FiO2 11/01/17 06:03 97.8 60 17 94/56 (69) 97 10/29/17 18:00 Room Air Assessment & Plan Problem List: (1) Unspecified psychosis ICD Codes: F29 - Unspecified psychosis not due to a substance or known physiological condition (2) Polysubstance abuse ICD Codes: F19.10 - Other psychoactive substance abuse, uncomplicated (3) Borderline intellectual functioning ICD Codes: R41.83 - Borderline intellectual functioning Assessment & Plan Estimated LOS: Continue with current treatment plan. Attending psychiatrist will reevaluate patient tomorrow. Days Justification for Cont. Inpt. Moving patient to a lower level of care may result in decompensation. Request HC Surrog/Guard Advoc?: No Marybeth Arguello Nov 02, 2017 10:02
[2017-11-03 06:27] VITALS: BP 92/56; PULSE 62; RESP 18; TEMP 97.4; O2SAT 97
--- NOTE | 2017-11-03 09:14 | HHI.DS ---
Psychiatry Discharge Summary Advance Directive: No Reason Not Provided: REFUSED Mental Health AdvanceDirective: No Health Care Proxy: No Admission Admission Date Oct 29, 2017 at 19:58 Admission Diagnosis: Brief History Ms. Coleman is a 31-year-old female with a reported history of bipolar disorder/ schizophrenia who presents under a [place] act by law enforcement alleging that the patient said that she did not "feel right" and might kill herself. Patient was seen by the psychiatric nurse practitioner in the ED, and I note that nurse practitioner obtained collateral information from patient's mother raising concern about patient's ability to care for self in less restrictive setting. Reviewing the electronic medical record, I see no previous psychiatric contact within our system. Patient seen and examined with nurse. Chart reviewed. Case discussed with nursing staff. On my examination today, the patient relates that prior to admission she was hearing voices "asking me to do things I didn't want to do. Telling me what to eat." She denies any such hallucinations now. She denies any visual hallucinations or formication or other hallucinatory material. She tells me "I think the meth has a lot to do with the voices." Patient's urine toxicology is positive for cocaine and methamphetamines. Mood is "all right" and I can elicit no depressive or hypomanic/manic symptoms. Sleep and appetite are reportedly fair. She denies any suicidal or homicidal ideation at this time. I can elicit no paranoia, no ideas of reference, no other delusional material at this time. The remainder of the psychiatric ROS is negative. Patient has no acute physical complaints. She is requesting discharge from the inpatient unit. Past psychiatric history: Patient reports a history of bipolar disorder/ schizophrenia. She is not currently under the care of a psychiatrist. She reports that she was psychiatrically admitted at the [facility] 2 weeks ago and was started at that time on Invega Sustenna. She denies a history of suicide attempts. She denies any history of violent behavior except she does report a history of domestic battery charges. Family history: Patient is unsure of family psychiatric history but denies a family history of suicide. Chemical dependency history: The patient reports that she has been using crack cocaine and methamphetamine. Occasional alcohol. Occasional pain pills. Denies any other substance use. Tobacco Use In Past 30 Days: 5 or More Cigarettes/Day Alcohol Use: Monthly or Less Results Blood Pressure 92 / 56 Vital Signs Date Time Temp Pulse Resp B/P (MAP) Pulse Ox O2 Delivery O2 Flow Rate FiO2 11/03/17 06:27 97.4 62 18 92/56 (68) 97 Medications Approp Antipsych med options 1 - Minimum of three failed multiple trials of monotherapy. 2 - Documented plan to taper to monotherapy due to previous use of multiple meds OR cross-taper in progress at D/C. 3 - Documentation of augmentation of Clozapine. 4 - Justification other than those listed in allowable values 1-3, document here : Discharge Pt Condition on Discharge: Stable Discharge Disposition: Discharge Home Discharge Instructions Diet Instructions: As Tolerated, No Restrictions Activities you can perform: Weight Bearing as Megha Mental Status Examination Appearance: Appropriate Consciousness: Alert Orientation: Person, Place, Date/Time (Approximate) Motor Activity: Normal gait Speech: Unremarkable Language: Adequate Fund of Knowledge: Adequate Attention and Concentration: Adequate Memory: Unremarkable (Remains grossly intact on clinical exam) Mood: Appropriate Affect: Appropriate Thought Process & Associations: Intact, Linear Thought Content: Appropriate Hallucination Type: Auditory (hearing voices described as "muffled" ) Delusion Type: None Suicidal Ideation: No Suicidal Plan: No Suicidal Intention: No Homicidal Ideation: No Homicidal Plan: No Homicidal Intention: No Discharge/Advance Care Plan Health Problems: (1) Unspecified psychosis (2) Polysubstance abuse (3) Borderline intellectual functioning Goals to promote your health * To prevent worsening of your condition and complications * To maintain your health at the optimal level Directions to meet your goals Take your medications as prescribed Follow your dietary instruction Follow activity as directed Keep your appointments as scheduled Take your immunizations and boosters as scheduled If your symptoms worsen call your PCP, if no PCP go to Urgent Care Center or Emergency Room For 27/01 questions related to your inpatient stay or results of tests pending at discharge, please contact Dr. Reddy Storey at Smoking is Dangerous to Your Health. Avoid second hand smoking Reddy Storey MD Nov 03, 2017 09:14
--- NOTE | 2017-11-03 14:13 | HHI.PYPN ---
Subjective Chief Complaint: "I didn't feel safe because I was on the streets." Remarks Patient seen and examined with nurse. Chart reviewed. Case discussed with nursing staff. Per nursing staff, patient has mild sexual preoccupation and only got 3 hours of sleep last night. On my examination today, the patient denies SI or HI. She initially denies AVH but then says that she is experiencing "annoying" voices but "I do not let them run my life." She denies any command auditory hallucinations to hurt self/others. She declines any medication management for these reported voices. She declines SKILLED NURSING placement. Counselor has been in contact with patient's mother who is apparently receiving medical treatment in [place]; she will return to our area tomorrow and could retrieve patient then. Patient agreeable to remaining on the unit for this purpose. No physical complaints. Review of Systems Except as stated in HPI: all other systems reviewed are Neg Mental Status Examination Appearance: Appropriate Consciousness: Alert Orientation: Person, Place, Date/Time (Approximate) Motor Activity: Normal gait, Other (No motor abnormalities noted) Speech: Unremarkable Language: Adequate Fund of Knowledge: Adequate Attention and Concentration: Adequate Memory: Unremarkable (Grossly intact) Mood: Appropriate Affect: Appropriate Thought Process & Associations: Intact, Linear Thought Content: Appropriate Hallucination Type: Auditory (Vague, noncommand) Delusion Type: None Suicidal Ideation: No Suicidal Plan: No Suicidal Intention: No Homicidal Ideation: No Homicidal Plan: No Homicidal Intention: No Mental Status Exam Remarks Insight and judgment are fair at best Results Labs Labs reviewed Vitals/IOs Vital Signs Date Time Temp Pulse Resp B/P (MAP) Pulse Ox O2 Delivery O2 Flow Rate FiO2 11/03/17 06:27 97.4 62 18 92/56 (34) 97 Assessment & Plan Problem List: (1) Unspecified psychosis ICD Codes: F29 - Unspecified psychosis not due to a substance or known physiological condition (2) Polysubstance abuse ICD Codes: F19.10 - Other psychoactive substance abuse, uncomplicated (3) Borderline intellectual functioning ICD Codes: R41.83 - Borderline intellectual functioning Assessment & Plan Patient declining psychotropic medications. OT eval reveals no ADL deficit. Neuropsych assessment reveals no neurocognitive disorder other than possible borderline intellectual functioning. There has been no evidence of self-care deficit on the unit. I will plan to retain the patient on the unit until tomorrow to allow for discharge into mother's care. Justification for Cont. Inpt. Risk for decompensation Discharge Planning Anticipate discharge tomorrow, Friday Request HC Surrog/Guard Advoc?: No Reddy Storey MD Nov 03, 2017 14:13
[2017-11-03 15:08] VITALS: BP 96/57; PULSE 18; RESP 18; TEMP 92.5; O2SAT 98
[2017-11-03] MEDS ORDERED: hydrOXYzine HCL 50 MG TAB PO ONE (19:45)
[2017-11-04 05:54] VITALS: BP 80/53; PULSE 52; RESP 17; TEMP 96.8; O2SAT 99
[2017-11-04 06:08] VITALS: BP 90/53; PULSE 79; RESP 16; TEMP 96.8; O2SAT 98
--- NOTE | 2017-11-04 10:13 | PD.TTN ---
Patient Problems 1. Discharge planning 2. Medication compliance 3. Knowledge deficit 4. Lack of coping skills Progress Toward Goals Provider Present: Dr. Negra Maki Provider Input: 11/04/17 - Patient is refusing medications and will be discharged to the care of her mother today. Dr. Storey's met to discuss patient's medication, treatment plan, and discharge. Patient is new will evaluate medication Nurse(s) Input: Patient's nurse patient is seclusive to room, refuses to give information Psychiatric Counselors Present: PATO Magaña, PATO Ross Psych Therapist Input: 11/04/17 - Counselor will plan for patient's discharge and follow-up appointments. Patient is new will evaluate and treat Group Spec/RT/OT/KWONG Present: Joseph Victoria OT, VARGHESE Wells Group Spec/RT/OT/KWONG Input: 11/04/17 - No participation. Patient often isolates to self, will be come tearful in group. Discharge Plan [facility] 11/04/17 - Patient will be discharged today and will follow-up at [facility]. Documentation Scribe: PATO Ross Date Resolved: November 04, 2017 Laquita Sharma November 04, 2017 10:12
--- NOTE | 2017-11-04 12:25 | HHI.DS ---
Psychiatry Discharge Summary Inpatient Psychiatric care?: Yes Advance Directive: No Reason Not Provided: REFUSED Mental Health AdvanceDirective: No Health Care Proxy: No Admission Admission Date Oct 29, 2017 at 19:58 Admission Diagnosis: (1) Unspecified psychosis ICD Code: F29 - Unspecified psychosis not due to a substance or known physiological condition (2) Polysubstance abuse ICD Code: F19.10 - Other psychoactive substance abuse, uncomplicated Brief History Ms. Coleman is a 31-year-old female with a reported history of bipolar disorder/ schizophrenia who presents under a [place] act by law enforcement alleging that the patient said that she did not "feel right" and might kill herself. Patient was seen by the psychiatric nurse practitioner in the ED, and I note that nurse practitioner obtained collateral information from patient's mother raising concern about patient's ability to care for self in less restrictive setting. Reviewing the electronic medical record, I see no previous psychiatric contact within our system. Patient seen and examined with nurse. Chart reviewed. Case discussed with nursing staff. On my examination today, the patient relates that prior to admission she was hearing voices "asking me to do things I didn't want to do. Telling me what to eat." She denies any such hallucinations now. She denies any visual hallucinations or formication or other hallucinatory material. She tells me "I think the meth has a lot to do with the voices." Patient's urine toxicology is positive for cocaine and methamphetamines. Mood is "all right" and I can elicit no depressive or hypomanic/manic symptoms. Sleep and appetite are reportedly fair. She denies any suicidal or homicidal ideation at this time. I can elicit no paranoia, no ideas of reference, no other delusional material at this time. The remainder of the psychiatric ROS is negative. Patient has no acute physical complaints. She is requesting discharge from the inpatient unit. Past psychiatric history: Patient reports a history of bipolar disorder/ schizophrenia. She is not currently under the care of a psychiatrist. She reports that she was psychiatrically admitted at the [facility] 2 weeks ago and was started at that time on Invega Sustenna. She denies a history of suicide attempts. She denies any history of violent behavior except she does report a history of domestic battery charges. Family history: Patient is unsure of family psychiatric history but denies a family history of suicide. Chemical dependency history: The patient reports that she has been using crack cocaine and methamphetamine. Occasional alcohol. Occasional pain pills. Denies any other substance use. Tobacco Use In Past 30 Days: 5 or More Cigarettes/Day Alcohol Use: Monthly or Less Hospital Course Patient was admitted to a locked, inpatient psychiatric unit. A general medical consultation was obtained. Appropriate precautions were in place throughout patient's hospital stay. Patient was seen and examined on the unit by psychiatry and also visited by counselor. Patient declined any psychotropic medications and reported that she had recently received Invega Sustenna. There was no evidence of suicidality or homicidality on the patient unit. There was no evidence of self-care deficit, and OT assessment indicates patient is independent for ADLs. 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 However, there does not appear to be an underlying neuropsychological cause for her poor decision making proclivities. From a neuropsychological perspective, she appears able to care for herself in a fashion that is likely not much different than she is accustomed." On the day of discharge: Patient seen and examined with nurse. Chart reviewed. Case discussed with nursing staff. No behavioral issues noted overnight. Case discussed in treatment team. On my examination today, the patient is requesting discharge from the inpatient psychiatric unit today. She denies any suicidal or homicidal ideation , intent or plan on direct questioning and contracts for safety. I can elicit no depressive or hypomanic/manic symptoms. She denies any audiovisual hallucinations. She denies any command auditory hallucinations. I can elicit no delusional material. There is no evidence of any impairment in reality construction. She continues to decline psychotropic medications. She has no physical complaints. I was called back to the unit to reassess the patient after she allegedly verbalized some suicidal ideation to relief charge nurse. However, when re-evaluated with nurse, patient denies ever having made such a statement and continues to deny suicidal ideation, intent or plan at the time of reassessment. She continues to request discharge today. Weighing the relevant factors and based on the available evidence, I fire technology instructor that the patient does not meet criteria for involuntary psychiatric hospitalization. There is no evidence of imminent risk of harm to self or others due to mental illness, nor is there any evidence of self-care deficit due to mental illness. The patient is requesting discharge from the inpatient psychiatric unit today, and I have no basis to retain her over her objection. Patient will be discharged today with psychiatric follow-up as arranged by counselor. Patient is also to follow up with primary care. I have counseled the patient to abstain from substances of abuse. I have counseled the patient regarding warning signs for need to return to the psychiatric emergency room as part of a general safety plan. I have provided no prescriptions on discharge, but I have recommended that patient follow up with outpatient provider for subsequent Invega Sustenna injections. With the benefit of observation on the inpatient unit, I do not appreciate evidence of active psychotic illness at this time. The patient does have substance use issues and also has borderline intellectual functioning as revealed by neuropsychological testing. Results Blood Pressure 90 / 53 Vital Signs Date Time Temp Pulse Resp B/P (MAP) Pulse Ox O2 Delivery O2 Flow Rate FiO2 11/04/17 06:08 96.8 79 16 90/53 (65) 98 Laboratory Tests Test 10/29/17 00:20 10/29/17 15:47 10/31/17 08:08 White Blood Count 5.1 TH/MM3 Red Blood Count 4.28 MIL/MM3 Hemoglobin 13.9 GM/DL Hematocrit 40.0 % Mean Corpuscular Volume 93.6 FL Mean Corpuscular Hemoglobin 32.6 PG Mean Corpuscular Hemoglobin Concent 34.8 % Red Cell Distribution Width 14.1 % Platelet Count 185 TH/MM3 Mean Platelet Volume 7.9 FL Neutrophils (%) (Auto) 48.6 % Lymphocytes (%) (Auto) 41.8 % Monocytes (%) (Auto) 7.7 % Eosinophils (%) (Auto) 0.9 % Basophils (%) (Auto) 1.0 % Neutrophils # (Auto) 2.5 TH/MM3 Lymphocytes # (Auto) 2.1 TH/MM3 Monocytes # (Auto) 0.4 TH/MM3 Eosinophils # (Auto) 0.0 TH/MM3 Basophils # (Auto) 0.1 TH/MM3 CBC Comment DIFF FINAL Differential Comment Beta HCG, Qualitative LESS THAN 1 MIU/ML Salicylates Level LESS THAN 1.7 MG/DL Acetaminophen Level LESS THAN 2.0 MCG/ML Ethyl Alcohol Level LESS THAN 3 MG/DL Urine Opiates Screen NEG Urine Barbiturates Screen NEG Urine Amphetamines Screen POS Urine Benzodiazepines Screen NEG Urine Cocaine Screen POS Urine Cannabinoids Screen NEG Blood Urea Nitrogen 10 MG/DL Creatinine 1.11 MG/DL Random Glucose 106 MG/DL Total Protein 7.6 GM/DL Albumin 3.6 GM/DL Calcium Level 9.1 MG/DL Alkaline Phosphatase 76 U/L Aspartate Amino Transf (AST/SGOT) 77 U/L Alanine Aminotransferase (ALT/SGPT) 129 U/L Total Bilirubin 0.3 MG/DL Sodium Level 140 MEQ/L Potassium Level 3.9 MEQ/L Chloride Level 105 MEQ/L Carbon Dioxide Level 27.9 MEQ/L Anion Gap 7 MEQ/L Estimat Glomerular Filtration Rate 57 ML/MIN Thyroid Stimulating Hormone 3rd Gen 0.390 uIU/ML Summary of Procedures None done Imaging None done Pending results at discharge: No Medications # of Antipsychotic meds at D/C: 0 Approp Antipsych med options 1 - Minimum of three failed multiple trials of monotherapy. 2 - Documented plan to taper to monotherapy due to previous use of multiple meds OR cross-taper in progress at D/C. 3 - Documentation of augmentation of Clozapine. 4 - Justification other than those listed in allowable values 1-3, document here : Discharge Discharge Date: November 04, 2017 Discharge Diagnosis: (1) Polysubstance abuse Diagnosis: Principal (counseled to quit) ICD Code: F19.10 - Other psychoactive substance abuse, uncomplicated (2) Borderline intellectual functioning Diagnosis: Secondary (chronic) ICD Code: R41.83 - Borderline intellectual functioning Pt Condition on Discharge: Stable Discharge Disposition: Discharge Home Discharge Instructions Diet Instructions: As Tolerated, No Restrictions Activities you can perform: Weight Bearing as Megha Scheduled Appointment: Jay Benitez Appointment Date: November 04, 2017 Appointment Time: 8:00-3:00 New Orders: COMP MET PROF (CMP) - 1 Week Medication Profile: Unable to Obtain Active Prescriptions or Reported Meds Discharge Time > 30 minutes Mental Status Examination Appearance: Appropriate Consciousness: Alert Orientation: x4 Motor Activity: Normal gait, Other (No abnormal motor movements noted) Speech: Unremarkable Language: Adequate Fund of Knowledge: Adequate Attention and Concentration: Adequate Memory: Unremarkable Mood: Appropriate Affect: Appropriate Thought Process & Associations: Intact, Logical, Linear Thought Content: Appropriate Hallucination Type: None Delusion Type: None Suicidal Ideation: No Suicidal Plan: No Suicidal Intention: No Homicidal Ideation: No Homicidal Plan: No Homicidal Intention: No Mental Status Exam Remarks Insight and judgment are likely chronically fair to poor Discharge/Advance Care Plan Health Problems: (1) Unspecified psychosis (2) Polysubstance abuse (3) Borderline intellectual functioning Goals to promote your health * To prevent worsening of your condition and complications * To maintain your health at the optimal level Directions to meet your goals Take your medications as prescribed Follow your dietary instruction Follow activity as directed Keep your appointments as scheduled Take your immunizations and boosters as scheduled If your symptoms worsen call your PCP, if no PCP go to Urgent Care Center or Emergency Room For 27/01 questions related to your inpatient stay or results of tests pending at discharge, please contact Dr. Reddy Storey at Smoking is Dangerous to Your Health. Avoid second hand smoking Reddy Storey MD November 04, 2017 12:25
== END 2017-11-04 15:40 | disposition home or self-care (01) | DRG 885 ==
LOC: NEDAMB 23:51 → NEDA 10-29 19:58 → H270 10-29 21:45
PROVIDERS: ADMIT Psychiatry & Neurology Psychiatry; ATTEND Psychiatry & Neurology Psychiatry
DX: F29 Unspecified psychosis not due to a substance or known physiological condition (principal); F31.32 Bipolar disorder, current episode depressed, moderate; R45.851 Suicidal ideations; N39.0 Urinary tract infection, site not specified; F20.3 Undifferentiated schizophrenia; F14.10 Cocaine abuse, uncomplicated; F15.10 Other stimulant abuse, uncomplicated; F11.10 Opioid abuse, uncomplicated; F43.10 Post-traumatic stress disorder, unspecified; F17.210 Nicotine dependence, cigarettes, uncomplicated; L85.3 Xerosis cutis; R41.83 Borderline intellectual functioning; Z87.820 Personal history of traumatic brain injury; Z91.14 Patient's other noncompliance with medication regimen
CPT/HCPCS: 80053; 80307; 84443; 84703; 85025; 93005; 99285